=== PATIENT | female | born 1940 | race Two or more races ===

== ENCOUNTER 2017-12-17 13:50 | Observation (INO) | payer OTHER ==
[~2017-12-17] VITALS: Ht 147.3 cm; Wt 38.6 kg
[2017-12-17] MEDS ORDERED: ASPirin 81 mg TAB PO ONE (15:00)
[2017-12-17 15:26] LABS: Basophils # (auto) 0.1 uL; Basophils % (auto) 0.7 % (0.0-2.0); Eosinophils # (auto) 0.1 uL; Eosinophils % (auto) 0.9 % (0.0-7.0); Hematocrit 35.8 % (36.0-46.0); Lymphocytes # (auto) 0.9 uL; Lymphocytes % (auto) 10.7 % (10.0-50.0); Mean Corpuscular Hemoglobin 28.9 pg (28.0-32.0); Mean Corpuscular Hgb Conc. 33.5 g/dL (32.0-36.0); Mean Corpuscular Volume 86.3 fL (80.0-100.0); Monocytes # (auto) 0.5 uL; Monocytes % (auto) 6.6 % (0.0-12.0); Neutrophils # (auto) 6.7 uL; Neutrophils % (auto) 81.1 % (37.0-80.0); Platelet Count (auto) 246 10^3/uL (140-450); Red Blood Cells 4.16 10^6/uL (4.0-5.20); White Blood Cell 8.2 10^3/uL (4.4-10.8)
[2017-12-17 15:40] LABS: INR 2.51 (0.9-1.15); Partial Thromboplastin Time 35.2 sec (23.78-33.04); Prothrombin Time 25.5 sec (9.27-12.13)
[2017-12-17 15:54] LABS: Albumin 3.1 g/dL (3.4-5.0); BUN/Creatinine Ratio 23.1; Bilirubin, Total 0.2 mg/dL (0.2-1.0); Calcium 8.8 mg/dL (8.5-10.1); Magnesium 1.8 mg/dL (1.6-2.6); Potassium 3.8 mmol/L (3.5-5.1); Total Protein 7.8 g/dL (6.4-8.2)
[2017-12-17 20:21] VITALS: BP 153/69
== END 2017-12-17 20:25 | disposition short-term general hospital (02) | DRG 313 ==
LOC: ER 13:50 → OVERFLOW 13:51 → ER 20:25
PROVIDERS: ADMIT Family Medicine; ATTEND Family Medicine
DX: R07.89 Other chest pain (principal); I26.99 Other pulmonary embolism without acute cor pulmonale; I20.0 Unstable angina; I50.42 Chronic combined systolic (congestive) and diastolic (congestive) heart failure; I11.0 Hypertensive heart disease with heart failure; I48.0 Paroxysmal atrial fibrillation; D64.9 Anemia, unspecified; J44.9 Chronic obstructive pulmonary disease, unspecified; E78.5 Hyperlipidemia, unspecified
CPT/HCPCS: 36415; 71045; 71046; 80053; 83735; 83880; 84443; 84484; 85025; 85610; 85730; 93005; 99291; G0378